=== PATIENT | male | born 1965 | race Caucasian/White ===

== ENCOUNTER → 2017-08-20 | Outpatient (CLI) | payer OTHER | LOC: FIMAGING 16:10 | PROVIDERS: ATTEND Internal Medicine | DX: J45.909 Unspecified asthma, uncomplicated (principal); J98.9 Respiratory disorder, unspecified ==

== ENCOUNTER → 2017-09-22 | Outpatient (CLI) | payer OTHER ==
[~2017-09-22] MED LIST: IOPAMIDOL (ISOVUE-300) 100 ML BTL ONE
== END ==
LOC: FIMAGING 10:52
PROVIDERS: ATTEND Internal Medicine
DX: J98.4 Other disorders of lung (principal); J98.11 Atelectasis
CPT/HCPCS: Q9967

== ENCOUNTER 2017-11-05 13:32 | Day surgery (SDC) | payer OTHER ==
[2017-11-05] MEDS ORDERED: LIDOCAINE 1% 300 MG/30 ML SDV ONE (13:45)
--- NOTE | 2017-11-05 13:50 | PDPROPOC ---
Sedation Plan of Care Sedation Plan of Care: vital signs stable, mental status noted, patient educated of risks, benefits, alternatives, patient can tolerate sedation ASA Classification: ASA 1 Planned drugs: fentanyl, midazolam Mallampati Score: Class 1 Mallampati Reference Image: Patient passed 3-3-2 rule?: Yes
[2017-11-05] MEDS ORDERED: MIDAZOLAM 2 MG/2 ML VIAL ONE (14:03)
[2017-11-05] MEDS ORDERED: fentaNYL 100 MCG/2 ML INJ ONE ×2 (14:04→15:02)
[2017-11-05] MEDS ORDERED: LIDOCAINE HCL 4% TOPICAL SOLN 50ML ONE (14:06)
[2017-11-05] MEDS ORDERED: ALBUTEROL 3 ML DEYVIAL ONE (14:08)
[2017-11-05] MEDS ORDERED: ONDANSETRON 4 MG/2 ML VIAL ONE (14:52)
[2017-11-05] MEDS ORDERED: BENZOCAINE UNIT DOSE SPRAY HURRICAINE MM ONE (14:53)
[2017-11-05 15:38] VITALS: RESP 16
[2017-11-05 16:11] VITALS: BP 127/79; PULSE 59; O2SAT 94
[2017-11-05 16:13] VITALS: TEMP 97.7
[2017-11-05 17:36] LABS: EOSINOPHIL STAIN LOT NUMBER 519210
[2017-11-05 17:38] LABS: EOSMR EOSINOPHILS FEW EOS (NO EOS SEEN); EOSMR PMNS MANY PMN CELLS; EOSMR RBCS MANY RBCS
[2017-11-05 18:02] LABS: EOSMR EPITHELIAL CELLS FEW EPITH CELLS
--- NOTE | 2017-11-06 04:17 | GPN ---
[f rep st] PROCEDURE NOTE DATE OF PROCEDURE: 11/05/2017 INDICATION: Agustín is a 52-year-old with no history of previous lung disease. Over the last 3-4 months he has noted cough and pulmonary congestion associated with some exercise intolerance. 10 pound weight loss also occurred. He has had no fevers or chills. He does bring up yellow mucus several times a day. A CT scan of the chest was done, which showed bilateral lower lobe bronchial wall thickening, associated with borderline airway enlargement/bronchiectasis and mucous plugging. The changes were isolated to the lower lobes bilaterally, somewhat posteriorly. There were areas of bandlike subsegmental atelectasis and associated with this some mild vague ground-glass type infiltrate. There was no evidence of ILD. He was treated with Augmentin and prednisone with improvement in his symptoms. However, following completion of this treatment and despite being on a combination bronchodilator/inhaled steroid his symptoms returned and perhaps have been slightly worse. This procedure is being done to obtain deep cultures and studies. PROCEDURE NOTE: The procedure was performed in the endoscopy unit. Informed consent was obtained from the patient. Appropriate time-out was performed. N95 masks were worn. A small amount of Hurricaine spray and lidocaine was used for topical anesthesia of the posterior oropharynx. Conscious sedation included 6 mg of Versed and 150 mcg of fentanyl. The fiberoptic bronchoscope was passed via bite block into the larynx. Laryngeal structures and vocal cords were normal. Vocal cords moved normally with cough and respiration. 1% lidocaine was applied to the vocal cords and to the trachea and lower tracheobronchial tree, approximately 30 mL. The mucosa appeared normal bilaterally. There was a moderate amount of mucus scattered on the mucosa, both in the trachea and in the main stem bronchi and extending into the lower lobes. There were no significant plugs. Mucus was removed with suction and washes from both sides. Samples were combined. Bronchoalveolar lavage was then performed in the left lower lobe. A protected sterile bronchial brush sample was obtained from the lower lobe as well. Finally, 2 biopsies were obtained from the left lower lobe. The patient tolerated the procedure well. There were no complications. There was insignificant bleeding, less than a few cc. Oxygen saturations on supplemental oxygen and vital signs remained normal throughout the procedure. Appropriate samples were sent to the laboratory. These included cultures for aerobic organisms, fungal and mycobacterial organisms, a deep respiratory panel PCR was sent. Cell count and differential with an eosinophil count was sent from the bronchoalveolar lavage. The sterile brush was sent for aerobic culture. Cytologies were sent from the bilateral bronchial wash. Finally, histology was requested from the 2 biopsy samples obtained. IMPRESSION: Bilateral mucus was found and appeared to have its origin in the lower lobes bilaterally. The mucosa appeared normal. There was no evidence of endobronchial lesions or extrinsic compression. Appropriate samples were obtained. There were no complications. /[id number]/MODL MTDD
[2017-11-09 11:03] LABS: RESPPCR RESULT SEE COMMENTS
== END 2017-11-05 16:50 | disposition home or self-care (01) ==
LOC: FSGY 13:32
PROVIDERS: ATTEND Internal Medicine Pulmonary Disease
PROC: 0B9B8ZX Drainage of Left Lower Lobe Bronchus, Via Natural or Artificial Opening Endoscopic, Diagnostic (ICD-10-PCS; principal; 2017-11-05 14:30)
PROC: 0BBB8ZX Excision of Left Lower Lobe Bronchus, Via Natural or Artificial Opening Endoscopic, Diagnostic (ICD-10-PCS; principal; 2017-11-05 14:30)
DX: J47.9 Bronchiectasis, uncomplicated (principal); B96.5 Pseudomonas (aeruginosa) (mallei) (pseudomallei) as the cause of diseases classified elsewhere; R09.89 Other specified symptoms and signs involving the circulatory and respiratory systems; R63.4 Abnormal weight loss
CPT/HCPCS: J0171; J2250; J2405; J3010

== ENCOUNTER → 2018-05-17 | Outpatient (CLI) | payer OTHER | LOC: FIMAGING 15:39 | PROVIDERS: ATTEND Internal Medicine Pulmonary Disease | DX: Z09 Encounter for follow-up examination after completed treatment for conditions other than malignant neoplasm (principal); J98.4 Other disorders of lung; J47.9 Bronchiectasis, uncomplicated ==